=== PATIENT | female | born 1985 | race Caucasian/White ===

== ENCOUNTER 2020-05-23 18:00 | Inpatient (IN) ==
[2020-05-23] MEDS ORDERED: Penicillin G Potassium IV 5,000,000 UNITS in NS 0.9% 100 ml BAG 100 ML IVPB ONE (19:16)
[2020-05-23] MEDS ORDERED: Lactated Ringers 1000 ml BAG 1,000 ML IV ONE (19:16)
[2020-05-23] MEDS ORDERED: Dinoprostone 10 MG VAG.SUPP VAGINAL ONE (19:16)
[2020-05-23] MEDS ORDERED: Morphine 10 MG/ML VIAL (1 ml) IV ONE (20:03)
[2020-05-23 20:05] LABS: Urine Benzodiazepine Screen None Detected (None Detect); Urine Cannabinoids Screen None Detected (None Detect); Urine Opiates Screen None Detected (None Detect)
[2020-05-23] MEDS: Promethazine INJ(RESTRICTED) 25 MG/ML 1 ml VIAL IV PRN (22:01)
[2020-05-24] MEDS ORDERED: Lidocaine 1% MPF 5 ML VIAL ONE (09:52)
[2020-05-24 10:34] LABS: ABS Eosinophils 0.1 10^3/ul (0-0.6); ABS Monocytes 0.6 10^3/ul (0-0.8); ABS Neutrophils 9.8 10^3/ul (1.5-7.7); Eosinophil % 0.5 %; Hematocrit 37 % (35-47); Lymphocyte % 15.8 %; Mean Corpuscular HGB Conc 35 g/dL (31-36); Mean Corpuscular Hemoglobin 29 pg (27-31); Mean Corpuscular Volume 84 fL (80-97); Mean Platelet Volume 8.7 fL (7.4-10.4); Platelet Count 184 10^3/uL (150-450); Red Blood Count 4.45 10^6 /uL (3.70-4.87); Red Cell Distribution Width 14 % (10-15); White Blood Count 12.4 10^3/uL (3.5-10.8)
[2020-05-24] MEDS: Lactated Ringers 1000 ml BAG 1,000 ML IV SCH (10:44)
[2020-05-24] MEDS ORDERED: Morphine 10 MG/ML VIAL (1 ml) IV ONE (11:03)
[2020-05-24] MEDS: Promethazine INJ(RESTRICTED) 25 MG/ML 1 ml VIAL IV PRN ×2 (11:50→22:16)
[2020-05-24] MEDS: Oxytocin in LR 20 UNITS/1,000 ML BAG IVPB SCH (11:51)
[2020-05-25] MEDS: Oxytocin in LR 20 UNITS/1,000 ML BAG IVPB SCH (10:30)
[2020-05-25] MEDS ORDERED: OBEPIDURAL 250 ML EPIDURAL ONE (15:38)
[2020-05-25] MEDS: Lactated Ringers 1000 ml BAG 1,000 ML IV SCH ×2 (15:55→18:54)
[2020-05-25] MEDS: Penicillin G Potassium IV 3,000,000 UNITS in NS 0.9% 100 ml BAG 100 ML IVPB SCH ×2 (19:59→23:59)
[2020-05-25] MEDS ORDERED: Lactated Ringers 1000 ml BAG 1,000 ML IV ONE (20:41)
[2020-05-25] MEDS ORDERED: Lactated Ringers 1000 ml BAG 500 ML IV PRN ×2 (20:41)
[2020-05-25] MEDS ORDERED: Sodium Citrate/Citric Acid LIQ 15 ML UDC PO PRN (20:41)
[2020-05-25] MEDS ORDERED: Phenylephrine 40 mcg/mL 10mL (400mcg) SYRINGE IV PUSH PRN ×2 (20:41)
[2020-05-25] MEDS ORDERED: Lactated Ringers 1000 ml BAG 1,000 ML IV SCH (21:00)
[2020-05-25] MEDS ORDERED: OBEPIDURAL 250 ML EPIDURAL SCH (21:00)
[2020-05-26] MEDS ORDERED: ceFOXitin 2 GM IVPREMIX 2 GM/50 ML BAG IVPB ONE (01:56)
[2020-05-26] MEDS ORDERED: Metoclopramide 5 MG/ML VIAL (10 mg) ONE (02:24)
[2020-05-26] MEDS ORDERED: EPHEDrine (Pressors) 50 MG/ML VIAL ONE (02:24)
[2020-05-26] MEDS ORDERED: Dexamethasone IV 4 MG/ML VIAL 1 ml VIAL ONE (02:24)
[2020-05-26] MEDS ORDERED: Ondansetron 4 mg VIAL 2 MG/ML 2 ml VIAL ONE (02:24)
[2020-05-26] MEDS ORDERED: Lidocaine 2% w/ EPI 1:200,000 MPF 20 ML SDV VIAL ONE (02:25)
[2020-05-26] MEDS ORDERED: Phenylephrine 40 mcg/mL 10mL (400mcg) SYRINGE ONE (02:25)
[2020-05-26] MEDS ORDERED: Sodium Chloride 0.9% 10 ML ONE (02:25)
[2020-05-26] MEDS ORDERED: Morphine PF AMP (0.5MG/ML) 5 MG/10 ML AMP ONE (02:27)
[2020-05-26] MEDS ORDERED: Naloxone 0.4 mg VIAL 0.4 mg/ml 1 ml VIAL IV PRN (03:16)
[2020-05-26] MEDS ORDERED: Ondansetron 4 mg VIAL 2 MG/ML 2 ml VIAL IV PRN (03:16)
[2020-05-26] MEDS ORDERED: DiMENhydriNATE IV 50 mg/ml 1 ml VIAL IV PUSH PRN (03:16)
[2020-05-26] MEDS ORDERED: Naloxone 4 mg VIAL (10 ml) 2 MG in NS 0.9% 250 ml 250 ML IV PRN (03:16)
[2020-05-26] MEDS ORDERED: Acetaminophen IV 1 GM/100ML 1,000 MG/100 ML VIAL IVPB ONE (03:19)
[2020-05-26] MEDS ORDERED: Witch Hazel PAD JAR TOPICAL PRN (08:02)
[2020-05-26] MEDS ORDERED: Lactated Ringers 1000 ml BAG 1,000 ML IV SCH (09:00)
[2020-05-27 07:31] LABS: ABS Basophils 0.1 10^3/ul (0-0.2); ABS Lymphocytes 1.5 10^3/ul (1.0-4.8); ABS Monocytes 0.5 10^3/ul (0-0.8); ABS Neutrophils 12.6 10^3/ul (1.5-7.7); Eosinophil % 0.3 %; Hematocrit 33 % (35-47); Hemoglobin 11.4 g/dL (12.0-16.0); Lymphocyte % 10.5 %; Mean Corpuscular HGB Conc 35 g/dL (31-36); Mean Corpuscular Hemoglobin 29 pg (27-31); Mean Corpuscular Volume 85 fL (80-97); Mean Platelet Volume 8.2 fL (7.4-10.4); Platelet Count 174 10^3/uL (150-450); Red Blood Count 3.86 10^6 /uL (3.70-4.87); Red Cell Distribution Width 15 % (10-15); White Blood Count 14.7 10^3/uL (3.5-10.8)
[2020-05-28 07:46] VITALS: BP 126/79
== END 2020-05-28 15:15 | disposition home or self-care (01) | DRG 787 ==
LOC: MCHOBOUT 18:00 → MCHOB 05-24 08:28
PROVIDERS: ADMIT Midwife; ATTEND Obstetrics & Gynecology